=== PATIENT | female | born 1960 | race Caucasian/White ===

== ENCOUNTER 2019-07-07 14:51 | Emergency (ER) | payer MEDICAID ==
[2019-07-07] MEDS ORDERED: Lasix 40 MG/4 ML IV ONE (15:02)
[2019-07-07] MEDS ORDERED: Sodium Chloride 0.9% 1000 ML 1,000 ML IV SCH (15:15)
[2019-07-07] MEDS ORDERED: Sodium Chloride 0.9% 1000 ML 1,000 ML ONE (15:32)
[2019-07-07] MEDS ORDERED: Lasix 40 MG/4 ML ONE (15:32)
--- NOTE | 2019-07-07 15:41 | ERPHSYRPT ---
- History of Present Illness Time Seen by Provider: 07/07/19 15:00 Source: patient, family Exam Limitations: no limitations Patient Subjective Stated Complaint: swelling in legs and abd for two weeks. also having pain in abd and diarrhea Triage Nursing Assessment: to room per w/c. skin w/d, color jaundice. abd large , firm, tender. normal bowel sounds. Physician History: 58-year-old female without any significant past medical history started having abdominal pain, abdominal distention, swelling on both legs. She also started having shortness of breath due to abdominal distention. Her symptoms got so more so she came to the emergency room. She denies any fever, chills, nausea, but complaining of diarrhea for last 2-3 weeks. Timing/Duration: week(s) (two weeks) Severity: moderate Associated Symptoms: abdominal pain, loss of appetite, weakness, other ( excessive thirst) Allergies/Adverse Reactions: No Known Drug Allergies Allergy (Unverified 07/07/19 15:05) Home Medications: Unobtainable 07/07/19 [History] Hx Tetanus, Diphtheria Vaccination/Date Given: No Hx Influenza Vaccination/Date Given: No Hx Pneumococcal Vaccination/Date Given: No - Review of Systems Constitutional: Fatigue, Lethargy, Weakness, No Fever, No Chills Eyes: No Symptoms Ears, Nose, & Throat: No Symptoms Respiratory: Dyspnea on Exertion (JUAREZ), No Cough, No Dyspnea Cardiac: Edema, No Chest Pain, No Syncope Abdominal/Gastrointestinal: Abdominal Pain, Diarrhea, No Nausea, No Vomiting Genitourinary Symptoms: No Dysuria Musculoskeletal: No Back Pain, No Neck Pain Skin: No Rash Neurological: No Dizziness, No Focal Weakness, No Sensory Changes Psychological: No Symptoms Endocrine: No Symptoms All Other Systems: Reviewed and Negative - Past Medical History Neurological History: No Pertinent History ENT History: No Pertinent History Cardiac History: No Pertinent History Respiratory History: COPD Endocrine Medical History: No Pertinent History Musculoskeletal History: Arthritis GI Medical History: No Pertinent History History: No Pertinent History Psycho-Social History: Anxiety, Depression Female Reproductive Disorders: No Pertinent History - Past Surgical History Past Surgical History: Yes Musculoskeletal: Orthopedic Surgery Female Surgical History: Section - Social History Smoking Status: Current every day smoker How long have you smoked: 41 Exposure to second hand smoke: No Drug Use: none Patient Lives Alone: No - Nursing Vital Signs Nursing Vital Signs: Initial Vital Signs Pulse Rate 131 H 07/07/19 14:58 Respiratory Rate 24 07/07/19 14:58 Blood Pressure 141/91 07/07/19 14:58 O2 Sat by Pulse Oximetry 97 07/07/19 14:58 Pain Scale Pain Intensity 6 - Physical Exam General Appearance: moderate distress Eye Exam: PERRL/EOMI Ears, Nose, Throat Exam: normal ENT inspection Neck Exam: normal inspection Respiratory Exam: diminished breath sounds, crackles/rales, rhonchi Cardiovascular Exam: tachycardia Gastrointestinal/Abdomen Exam: normal bowel sounds, distention, No rebound Pelvic Exam: not done Rectal Exam: deferred Back Exam: normal inspection Extremity Exam: pedal edema Neurologic Exam: alert, oriented x 3, cooperative SpO2: 97 - Course Nursing assessment & vital signs reviewed: Yes - CT Exams Abdomen/Pelvis CT Interpretation: Tele-radiologist Report (ascites, liver cirrhosis) Chest CT Interpretation: Tele-radiologist Report, No PE Ordered Tests: Active Orders 24 hr Category Date Time Status Trombone Slide Assembler STAT Care 07/07/19 15:03 Active EKG-ER Only STAT Care 07/07/19 15:02 Active IV Insertion STAT Care 07/07/19 15:02 Active Oxygen-ED Only Nasal Cannula 2 lpm Care 07/07/19 15:02 Active ABDOMEN AND PELVIS W&WO CONTRA [CT] Stat Exams 07/07/19 16:43 Taken CHEST 1 VIEW (PORTABLE) Stat Exams 07/07/19 16:08 Taken CHEST WITH CONTRAST [CT] Stat Exams 07/07/19 17:16 Taken VENOUS BILATERAL EXTREMITY [US] Stat Exams 07/07/19 17:53 Taken BLOOD CULTURE Stat Lab 07/07/19 15:33 Received CBC W DIFF Stat Lab 07/07/19 15:15 Completed CMP Stat Lab 07/07/19 15:15 Completed CULTURE,URINE Stat Lab 07/07/19 16:28 Ordered D-DIMER QUANTITATION Stat Lab 07/07/19 15:15 Completed Lactic Acid Stat Lab 07/07/19 16:00 Completed Lactic Acid Stat Lab 07/07/19 18:28 Ordered MAGNESIUM Stat Lab 07/07/19 15:15 Completed NT PRO BNP Stat Lab 07/07/19 15:15 Completed PT INR [PROTIME WITH INR] Stat Lab 07/07/19 18:36 Ordered TROPONIN Q3H Lab 07/07/19 15:15 Completed TROPONIN Q3H Lab 07/07/19 18:15 Ordered TROPONIN Q3H Lab 07/07/19 21:15 Ordered TROPONIN Q3H Lab 07/08/19 00:15 Ordered TROPONIN Q3H Lab 07/08/19 03:15 Ordered UA W/RFX UR CULTURE Stat Lab 07/07/19 16:28 Completed Medication Summary Generic Name Dose Route Start Last Admin Trade Name Freq PRN Reason Stop Dose Admin Sodium Chloride 1,000 mls @ 50 mls/hr 07/07/19 15:15 07/07/19 15:40 Sodium Chloride 0.9% 1000 Ml IV 08/06/19 15:14 50 mls/hr .Q20H CLEMENT Administration Potassium Chloride 20 meq in 100 mls @ 50 mls/hr 07/07/19 17:00 07/07/19 18: 27 Potassium Chloride 20 Meq In Water 100ml IV 07/07/19 20:59 50 mls/hr Q2H CLEMENT Administration Discontinued Medications Generic Name Dose Route Start Last Admin Trade Name Freq PRN Reason Stop Dose Admin Enoxaparin Sodium 120 mg 07/07/19 16:24 07/07/19 16:38 Enoxaparin Sodium SQ 07/07/19 16:25 120 mg 1XONLY ONE Administration Enoxaparin Sodium Confirm 07/07/19 16:36 Enoxaparin Sodium Administered 07/07/19 16:37 Dose 120 mg SQ .STK-MED ONE Furosemide 40 mg 07/07/19 15:02 07/07/19 15:41 Lasix 40 Mg/4 Ml IV 07/07/19 15:03 40 mg STAT ONE Administration Furosemide Confirm 07/07/19 15:32 Lasix 40 Mg/4 Ml Administered 07/07/19 15:33 Dose 40 mg .ROUTE .STK-MED ONE Magnesium Sulfate/Dextrose 100 mls @ 200 mls/hr 07/07/19 16:59 07/07/19 17:06 Magnesium 1 Gm / 100 Ml D5w IV 07/07/19 17:28 200 mls/hr STAT ONE Administration Magnesium Sulfate/Dextrose Confirm 07/07/19 17:04 Magnesium 1 Gm / 100 Ml D5w Administered 07/07/19 17:05 Dose 100 mls @ ud IV .STK-MED ONE Lab/Rad Data: Laboratory Result Diagrams 07/07/19 15:15 07/07/19 15:15 Laboratory Results 07/07/19 07/07/19 07/07/19 Range/Units 16:28 16:00 15:15 WBC (4.0-10.5) K/mm3 RBC (4.1-5.4) M/mm3 Hgb (12.0-16.0) gm/dl Hct (35-47) % MCV (78-100) fl MCH (26-32) pg MCHC (32-36) g/dl RDW (11.5-14.0) % Plt Count (150-450) K/mm3 MPV (6-9.5) fl Gran % (36.0-66.0) % Eos # (Auto) (0-0.5) Absolute Lymphs (auto) (1.0-4.6) Absolute Monos (auto) (0.0-1.3) Lymphocytes % (24.0-44.0) % Monocytes % (0.0-12.0) % Eosinophils % (0.00-5.0) % Basophils % (0.0-0.4) % Absolute Granulocytes (1.4-6.9) Basophils # (0-0.4) D-Dimer (215-500) ng/mL Sodium (137-145) mmol/L Potassium (3.5-5.1) mmol/L Chloride (98-107) mmol/L Carbon Dioxide (22-30) mmol/L Anion Gap (5-15) MEQ/L BUN (7-17) mg/dL Creatinine (0.52-1.04) mg/dL Estimated GFR ML/MIN Glucose (74-106) mg/dL Lactic Acid 3.6 H (0.4-2.0) Calcium (8.4-10.2) mg/dL Magnesium (1.6-2.3) mg/dL Total Bilirubin (0.2-1.3) mg/dL AST (14-36) U/L ALT (0-35) U/L Alkaline Phosphatase (38-126) U/L Troponin I < 0.012 (0.000-0.034) ng/mL NT-Pro-B Natriuret Pep (0-900) pg/mL Serum Total Protein (6.3-8.2) g/dL Albumin (3.5-5.0) g/dL Urine Color RICKEY (YELLOW) Urine Appearance SLIGHTLY CLOUDY (CLEAR) Urine pH 7.0 (5-6) Ur Specific [place] 1.006 (1.005-1.025) Urine Protein NEGATIVE (Negative) Urine Ketones NEGATIVE (NEGATIVE) Urine Blood MODERATE (0-5) [place]/ul Urine Nitrite NEGATIVE (NEGATIVE) Urine Bilirubin NEGATIVE (NEGATIVE) Urine Urobilinogen 4 (0-1) mg/dL Ur Leukocyte Esterase SMALL (NEGATIVE) Urine WBC (Auto) 6-10 (0-5) /HPF Urine RBC (Auto) 0-2 (0-2) /HPF U Hyaline Cast (Auto) 11-25 (0-2) /LPF U Epithel Cells (Auto) NONE (FEW) /HPF Urine Bacteria (Auto) PACKED (NEGATIVE) /HPF Urine Mucus (Auto) SLIGHT (NEGATIVE) /HPF Urine Culture Reflexed ORDERED SEPARATELY (NO) Urine Glucose NEGATIVE (NEGATIVE) mg/dL 07/07/19 07/07/19 07/07/19 Range/Units 15:15 15:15 15:15 WBC 11.2 H (4.0-10.5) K/mm3 RBC 3.40 L (4.1-5.4) M/mm3 Hgb 11.9 L (12.0-16.0) gm/dl Hct 35.1 (35-47) % MCV 103.2 H (78-100) fl MCH 35.0 H (26-32) pg MCHC 33.9 (32-36) g/dl RDW 15.9 H (11.5-14.0) % Plt Count 230 (150-450) K/mm3 MPV 10.0 H (6-9.5) fl Gran % 84.3 H (36.0-66.0) % Eos # (Auto) 0.06 (0-0.5) Absolute Lymphs (auto) 0.83 L (1.0-4.6) Absolute Monos (auto) 0.84 (0.0-1.3) Lymphocytes % 7.4 L (24.0-44.0) % Monocytes % 7.5 (0.0-12.0) % Eosinophils % 0.5 (0.00-5.0) % Basophils % 0.3 (0.0-0.4) % Absolute Granulocytes 9.43 H (1.4-6.9) Basophils # 0.03 (0-0.4) D-Dimer 48620 H* (215-500) ng/mL Sodium 130 L (137-145) mmol/L Potassium 2.8 L* (3.5-5.1) mmol/L Chloride 88 L (98-107) mmol/L Carbon Dioxide 30 (22-30) mmol/L Anion Gap 15.6 H (5-15) MEQ/L BUN 6 L (7-17) mg/dL Creatinine 0.54 (0.52-1.04) mg/dL Estimated GFR > 60.0 ML/MIN Glucose 169 H (74-106) mg/dL Lactic Acid (0.4-2.0) Calcium 8.1 L (8.4-10.2) mg/dL Magnesium 1.3 L (1.6-2.3) mg/dL Total Bilirubin 5.80 H (0.2-1.3) mg/dL AST 270 H (14-36) U/L ALT 47 H (0-35) U/L Alkaline Phosphatase 321 H (38-126) U/L Troponin I (0.000-0.034) ng/mL NT-Pro-B Natriuret Pep 1290 H (0-900) pg/mL Serum Total Protein 7.4 (6.3-8.2) g/dL Albumin 2.8 L (3.5-5.0) g/dL Urine Color (YELLOW) Urine Appearance (CLEAR) Urine pH (5-6) Ur Specific [place] (1.005-1.025) Urine Protein (Negative) Urine Ketones (NEGATIVE) Urine Blood (0-5) [place]/ul Urine Nitrite (NEGATIVE) Urine Bilirubin (NEGATIVE) Urine Urobilinogen (0-1) mg/dL Ur Leukocyte Esterase (NEGATIVE) Urine WBC (Auto) (0-5) /HPF Urine RBC (Auto) (0-2) /HPF U Hyaline Cast (Auto) (0-2) /LPF U Epithel Cells (Auto) (FEW) /HPF Urine Bacteria (Auto) (NEGATIVE) /HPF Urine Mucus (Auto) (NEGATIVE) /HPF Urine Culture Reflexed (NO) Urine Glucose (NEGATIVE) mg/dL - Progress Progress: unchanged Discussed with DrJorge: Other (Dr Carrero at [facility]) Will see patient in: ED Counseled pt/family regarding: lab results, diagnosis, need for follow-up, rad results - Departure Departure Disposition: Transfer ([facility]) Clinical Impression: Acute liver failure without hepatic coma Condition: Fair Critical Care Time: Yes Critical Care Time(excluding separately billable procedures): Critical 75-104 mins
[2019-07-07 16:03] LABS: Absolute Neutrophil Ct (ANC) 9.43 (1.4-6.9); BASOPHIL % 0.3 % (0.0-0.4); Basophil (Absolute #) 0.03 (0-0.4); Eosinophil % 0.5 % (0.00-5.0); Eosinophil (Absolute #) 0.06 (0-0.5); Hematocrit 35.1 % (35-47); Hemoglobin 11.9 gm/dl (12.0-16.0); Lymphocyte (Absolute #) 0.83 (1.0-4.6); Lymphocytes % 7.4 % (24.0-44.0); Mean Cell Volume 103.2 fl (78-100); Mean Corpuscular Hgb Concent. 33.9 g/dl (32-36); Monocyte (Absolute #) 0.84 (0.0-1.3); Monocytes % 7.5 % (0.0-12.0); Neutrophil % 84.3 % (36.0-66.0); Platelet Count 230 K/mm3 (150-450); Red Cell Distribution Width 15.9 % (11.5-14.0); White Blood Count 11.2 K/mm3 (4.0-10.5)
[2019-07-07] MEDS ORDERED: ENOXAPARIN SODIUM SQ ONE ×2 (16:24→16:36)
[2019-07-07 16:29] LABS: Lactic Acid 3.6 (0.4-2.0)
[2019-07-07 16:43] LABS: ALBUMIN 2.8 g/dL (3.5-5.0); ALKALINE PHOSPHATASE 321 U/L (38-126); ANION GAP 15.6 MEQ/L (5-15); BLOOD UREA NITROGEN 6 mg/dL (7-17); CHLORIDE 88 mmol/L (98-107); Calcium 8.1 mg/dL (8.4-10.2); Carbon Dioxide 30 mmol/L (22-30); Creatinine 1 0.54 mg/dL (0.52-1.04); Glucose 169 mg/dL (74-106); MAGNESIUM 1.3 mg/dL (1.6-2.3); NT PRO BNP 1290 pg/mL (0-900); SGOT/AST 270 U/L (14-36); SGPT/ALT 47 U/L (0-35); SODIUM 130 mmol/L (137-145); Total Protein 7.4 g/dL (6.3-8.2)
[2019-07-07 16:46] LABS: Potassium 2.8 mmol/L (3.5-5.1)
[2019-07-07] MEDS ORDERED: Magnesium 1 Gm / 100 Ml D5W*** 100 ML IV ONE ×2 (16:59→17:04)
[2019-07-07] MEDS ORDERED: POTASSIUM CHLORIDE 20 mEq IN WATER 100ML 20 MEQ/100 ML BAG IV SCH (17:00)
[2019-07-07 17:57] VITALS: BP 118/81; PULSE 131
[2019-07-07] MEDS ORDERED: POTASSIUM CHLORIDE 20 mEq IN WATER 100ML 100 ML IV ONE (18:25)
[2019-07-07 18:26] LABS: Appearance SLIGHTLY CLOUDY (CLEAR); Bacteria PACKED /HPF (NEGATIVE); Bilirubin NEGATIVE (NEGATIVE); Blood MODERATE Ery/ul (0-5); Glucose NEGATIVE (NEGATIVE); Ketones NEGATIVE (NEGATIVE); Leukocyte Esterase SMALL (NEGATIVE); Mucus SLIGHT /HPF (NEGATIVE); Nitrite NEGATIVE (NEGATIVE); Protein,Urine Dip NEGATIVE (Negative); RBC 0-2 /HPF (0-2); Specific Gravity 1.006 (1.005-1.025); Urobilinogen 4 mg/dL (0-1)
[2019-07-07 18:38] VITALS: O2SAT 97
[2019-07-07 18:57] LABS: INR 2.19 (0.8-3.0); PROTIME 25.1 SECONDS (9.95-12.35)
--- NOTE | 2019-07-07 21:04 | XRAY ---
Indication: Leg swelling. Elevated d-dimer. Two-dimensional sonogram and color Doppler imaging of the major venous vessels of the left and right leg was performed. Comparison: None No thrombus seen in the examined deep venous vessels of the left and right leg including greater saphenous veins. Veins demonstrate normal compressibility. Venous waveforms are normal with and without augmentation. Right lower leg/calf demonstrates subcutaneous soft tissue swelling/edema without focal fluid collection. Impression: Left and right legs negative for DVT. Comment: Preliminary report was given.
--- NOTE | 2019-07-07 21:06 | XRAY ---
Indication: Short of breath. Comparison: None Portable chest demonstrates tiny bibasilar effusions with minimal right base infiltrate/atelectasis. Upper lungs clear. Heart is nonenlarged for AP portable technique. Bony thorax intact with mild degenerative changes, old left humeral fracture, and bilateral calcified breast implants. Impression: 1. Tiny bibasilar effusions without cardiomegaly. 2. Right base infiltrate/atelectasis. Correlate clinically.
--- NOTE | 2019-07-08 08:48 | XRAY ---
Indication: Short of breath. Elevated d-dimer. Multiple contiguous axial images obtained through the abdomen and pelvis using 80 cc Isovue 370 contrast and PE protocol. Comparison: None There is good opacification of the pulmonary arteries to include the lobar and segmental branches. No filling defect or pulmonary embolus. Heart is not enlarged. Aorta is mildly arteriosclerotic without aneurysm/dissection. No pathologic mediastinal/hilar lymphadenopathy. Lungs demonstrate small bilateral pleural effusions with bibasilar compressive atelectasis, right greater than left. No suspicious pulmonary mass or infiltrate. Bony thorax demonstrates mild degenerative changes throughout the spine and old proximal left humeral fracture with orthopedic hardware. Incidental calcified bilateral breast implants. CT abdomen reported separately. Impression: 1. Negative pulmonary embolus. 2. Small nonspecific bilateral pleural effusions with bibasilar compressive atelectasis. Comment: Preliminary interpretation was made by [facility]. No critical discrepancy.
--- NOTE | 2019-07-08 08:52 | XRAY ---
Indication: Abdominal bloating. Short of breath. Elevated d-dimer. Multiple contiguous axial images obtained through the abdomen and pelvis prior to and following 80 cc Isovue 370 contrast as ordered. Comparison: None CT chest reported separately. Noncontrasted images demonstrates tiny calcified splenic granuloma. No pathologic visceral calcifications/calculi. Heavy scattered vascular calcifications. Noncontrasted stomach and bowel loops appear nonobstructed. There is moderate abdomen/pelvic ascites. No free air. Postcontrast images demonstrates normal visceral enhancement and renal excretion. Cirrhotic appearing liver with 2 cysts, largest 1.5 cm. Gallbladder moderately distended without gallstones. Remaining pancreas, spleen, adrenal glands, kidneys, ureters, bladder, and uterus appear unremarkable. No AAA or pathologic retroperitoneal lymphadenopathy. Osseous structures intact with mild/moderate degenerative changes throughout the thoracolumbar spine. Impression: 1. Cirrhotic liver with abdomen/pelvic ascites. Incidental hepatic cysts. 2. Distended gallbladder. Gallbladder sonogram may yield further information if clinically warranted. 3. Remaining CT abdomen/pelvis with and without contrast exam negative. Comment: Preliminary interpretation was made by [facility]. No critical discrepancy.
== END 2019-07-07 19:16 | disposition short-term general hospital (02) ==
LOC: ED 14:51
DX: K72.00 Acute and subacute hepatic failure without coma (principal)
CPT/HCPCS: 36000; 36415; 71045; 71260; 74177; 80053; 81001; 83605; 83735; 83880; 84484; 85025; 85379; 85610; 87040; 87077; 87086; 87186; 93005; 93041; 93970; 96360; 96361; 96365; 96367; 96372; 96374; 99285; 99291; 99292; J1650; J1940; J3475; J3480

== ENCOUNTER 2020-01-31 05:48 | Day surgery (SDC) | payer OTHER ==
[2020-01-31] MEDS ORDERED: Lactated Ringers 1,000 ML IV SCH (06:30)
[2020-01-31] MEDS ORDERED: Xylocaine-Mpf 2% 5 Ml Vial ONE (07:45)
[2020-01-31] MEDS ORDERED: DIPRIVAN 200 MG/20 ML IV ONE (07:45)
[2020-01-31 08:55] VITALS: PULSE 115
[2020-01-31 09:27] VITALS: BP 119/78; O2SAT 100
--- NOTE | 2020-01-31 09:39 | OP ---
SURGERY DATE/TIME: 01/31/2020 0754 PREOPERATIVE DIAGNOSIS: 1. SCREENING EXAM. POSTOPERATIVE DIAGNOSIS: 1. DESCENDING COLON SESSILE POLYP. PROCEDURE: 1. Colonoscopy with cold forceps biopsy. SURGEON: Dr. Calle. ANESTHESIA: MAC, medication given by the anesthesia department. BRIEF HISTORY: The patient is a 59 y/o WF presenting now for screening colonoscopy. The patient is listed for having a liver transplant and needed a colon exam prior to this. The patient was appraised of the risks of the procedure including the risk of perforation, phlebitis, untoward reaction to medication, bleeding, and missed lesions. The patient verbalized her understanding and desired to have the procedure performed. DESCRIPTION OF PROCEDURE: The patient was given the medications by the anesthesia department. She had continuous pulse oximetry, ECG monitoring, intermittent BP monitoring, and end tidal CO2 monitoring during the examination. She was placed in the left lateral decubitus position. A digital rectal examination was performed and revealed normal anal sphincter tone and no masses. The flexible Olympus pediatric colonoscope was used to intubate the rectum. A view of the colon was developed sequentially to the cecum. Upon insertion and withdrawal, was noted a sessile subtle approximately 1.5 X 2 cm polyp. This was destroyed using multiple passes with cold forceps biopsy. Upon insertion and withdrawal, including retroflex view in the rectum, no other mucosal lesions were encountered. The scope was removed from the patient who tolerated the procedure well and was sent back to OP recovery in good condition. The prep was noted to be fair to good.
== END 2020-01-31 09:40 | disposition home or self-care (01) ==
LOC: SDC 05:48
PROVIDERS: ATTEND Family Medicine
DX: Z12.11 Encounter for screening for malignant neoplasm of colon (principal); D12.2 Benign neoplasm of ascending colon
CPT/HCPCS: 88305; J2704